=== PATIENT | male | born 1970 | race Hispanic/Latino ===

== ENCOUNTER 2019-12-23 20:08 | Emergency (ER) | payer BC, OTHER ==
[~2019-12-23 20:08] MED LIST: Iopamidol 370 76% 100 ML VIAL ONE
[2019-12-23 20:38] LABS: #Basophils 0.1 thou/uL (0.0-0.2); #Eosinphils 0.3 thou/uL (0.0-0.7); #Monocytes 0.9 thou/uL (0.11-0.59); #Neutrophils 4.2 thou/uL (1.40-6.50); %Eosinophils 3.3 % (0.0-10.0); %Lymphocytes 42.2 % (21.0-51.0); %Monocytes 9.1 % (0.0-10.0); %Neutrophils 44.4 % (42.0-75.0); Mean Corpuscular HGB CONC 33.1 g/dL (32.0-36.0); Mean Corpuscular Volume 90.7 fL (78.0-98.0); Mean Platelet Volume 9.6 fL (7.4-10.4); Platelet Count 224 thou/uL (130-400); RBC Distribution Width 11.9 % (11.5-14.5); Red Blood Cell (RBC) Count 5.32 mill/uL (4.70-6.10); White Blood Cell (WBC) Count 9.4 thou/uL (4.8-10.8)
[2019-12-23 20:50] LABS: Albumin 4.2 g/dL (3.5-5.0); Anion Gap 12 mmol/L (10-20); BUN (Urea Nitrogen) 11 mg/dL (8.9-20.6); Bilirubin, Total 0.6 mg/dL (0.2-1.2); Calc. Creatinine Clearance 0 mL/min (70-130); Calcium 8.9 mg/dL (7.8-10.44); Carbon Dioxide 25 mmol/L (22-29); Chloride 107 mmol/L (98-107); Estimated GFR-MDRD Greater than 90; Globulin 3.5 g/dL (2.4-3.5); Glucose 128 mg/dL (70-105); Potassium 3.6 mmol/L (3.5-5.1); Protein, Total 7.7 g/dL (6.0-8.3); Sodium 140 mmol/L (136-145)
[2019-12-23 20:51] LABS: ALT (SGPT) 76 U/L (8-55); AST (SGOT) 61 U/L (5-34); Alkaline Phosphatase 108 U/L (40-110); Lipase 36 U/L (8-78)
[2019-12-23] MEDS ORDERED: diphenhydrAMINE 50 MG/ML VIAL ONE (21:05)
[2019-12-23] MEDS ORDERED: methylPREDNISolone Sod Succ/PF 125 MG/2 ML VIAL ONE (21:07)
[2019-12-23] MEDS ORDERED: Adacel (T-DAP) 0.5 ML SYRINGE ONE (21:17)
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
[2019-12-23 21:41] LABS: Bilirubin Negative (Negative); Blood, Urine Negative (Negative); Clarity Clear (Clear); Glucose, Urine (Dipstick) Negative (Negative); Leukocyte Negative (Negative); Nitrite Negative (Negative); Protein, Urine (Dipstick) Negative (Neg-Trace)
== END 2019-12-23 22:29 | disposition home or self-care (01) ==
LOC: BURERS 20:08
DX: S31.030A Puncture wound without foreign body of lower back and pelvis without penetration into retroperitoneum, initial encounter (principal); S30.811A Abrasion of abdominal wall, initial encounter; L50.9 Urticaria, unspecified; I10 Essential (primary) hypertension; Z87.891 Personal history of nicotine dependence; Z79.899 Other long term (current) drug therapy; Z23 Encounter for immunization; W34.09XA Accidental discharge from other specified firearms, initial encounter
CPT/HCPCS: 71260; 74177; 80053; 81003; 83690; 85025; 90471; 90715; 93005; 94760; 96374; 96375; J1200; J2930; Q9967

== ENCOUNTER 2020-03-09 18:29 | Emergency (ER) | payer BC, OTHER ==
[2020-03-10 16:09] LABS: SARS-CoV-2 N Gene Positive; SARS-CoV-2 S Gene Positive; SARS-CoV-2 orf1ab Positive
[2020-03-10 16:10] LABS: SARS-CoV-2 MS2 Positive
== END 2020-03-09 18:50 | disposition home or self-care (01) ==
LOC: BURERS 18:29
DX: U07.1 COVID-19 (principal); I10 Essential (primary) hypertension; Z87.891 Personal history of nicotine dependence
CPT/HCPCS: 87635; 99284; U0003